=== PATIENT | female | born 1975 | race African-American/Black ===

== ENCOUNTER 2018-06-11 12:30 | Emergency (ER) | payer OTHER ==
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
[2018-06-11 12:37] VITALS: BP 135/69; PULSE 89; TEMP 98.2; BMI 30.1
== END 2018-06-11 13:00 | disposition home or self-care (01) ==
LOC: FER 12:30
CPT/HCPCS: 99282-25